=== PATIENT | male | born 1960 | race Caucasian/White ===

== ENCOUNTER 2023-06-02 01:11 | Emergency (ER) | payer BC ==
[~2023-06-02] VITALS: Ht 175.3 cm; Wt 87.1 kg
[2023-06-02 01:22] VITALS: BP_SYST 147; PULSE 97; RESP 22; TEMP 97; O2SAT 100
[2023-06-02 03:01] LABS: INFLUENZA TYPE A Negative (NEGATIVE); INFLUENZA TYPE B NEGATIVE (NEGATIVE)
[2023-06-02] MEDS ORDERED: CEPH-548 PO ×3 (03:11→03:27)
[2023-06-02] MEDS ORDERED: [UNRECOGNIZED DRUG - CODE] EACH EYE ×3 (03:11→03:27)
[2023-06-02 03:32] VITALS: BP_SYST 147; PULSE 97; RESP 22; TEMP 97; O2SAT 100
== END 2023-06-02 03:32 | disposition home or self-care (01) ==
LOC: SED 01:11
DX: H10.89 Other conjunctivitis (principal); M79.10 Myalgia, unspecified site; L29.9 Pruritus, unspecified; Z88.8 Allergy status to other drugs, medicaments and biological substances; Z79.899 Other long term (current) drug therapy; Z20.822 Contact with and (suspected) exposure to COVID-19
CPT/HCPCS: 36415; 99283